=== PATIENT | female | born 1985 | race Caucasian/White ===

== ENCOUNTER 2019-09-11 22:15 | Emergency (ER) | payer OTHER, MEDICAID ==
[~2019-09-11] VITALS: Ht 157.5 cm; Wt 65.8 kg
[2019-09-11 22:19] VITALS: BP 117/68
[2019-09-11 23:45] VITALS: BP 117/68
== END 2019-09-11 23:45 | disposition home or self-care (01) ==
LOC: MED 22:15
DX: S13.4XXA Sprain of ligaments of cervical spine, initial encounter (principal); X58.XXXA Exposure to other specified factors, initial encounter; Y93.89 Activity, other specified; Y92.89 Other specified places as the place of occurrence of the external cause; Y99.8 Other external cause status
CPT/HCPCS: 72040; 81025; 99283